=== PATIENT | female | born 1995 ===

== ENCOUNTER 2016-10-14 23:59 | Observation (INO) | payer OTHER ==
[2016-10-15] MEDS ORDERED: HYDROmorphone INJ* 1 MG/ML CARPUJECT SYRINGE IV PRN (01:45)
[2016-10-15] MEDS ORDERED: NS 0.9% 1000 ML* 1,000 ML IV SCH (01:45)
[2016-10-15] MEDS ORDERED: Ondansetron INJ* 2 MG/ML VIAL IV PRN (01:45)
[2016-10-15] MEDS ORDERED: Albuterol 2.5 MG/3 ML NEB.SOL* (0.083%) INH PRN (01:45)
[2016-10-15] MEDS ORDERED: Acetaminophen TAB* 325 MG PO PRN (01:45)
[2016-10-15] MEDS ORDERED: Ketorolac INJ* 15 MG/ML 1 ML VIAL IV PRN (01:45)
[2016-10-15] MEDS ORDERED: Nicotine Inhaler* 10 MG AMP INH PRN (01:45)
[2016-10-15] MEDS ORDERED: CMCS: Melatonin (NF) 3 MG TAB PO PRN (01:45)
[2016-10-15] MEDS ORDERED: Cyclobenzaprine TAB* 10 MG PO PRN (01:46)
--- NOTE | 2016-10-15 02:03 | HP ---
H&P (Free Text) History and Physical: PCP: Pavan Mcmahon DO Date/Time of Evaluation: 10/15/2016 0130 CC: LBP s/p slip & fall on ice Thursday HPI: Ms Arango is a pleasant 21YO healthy female who slipped on her porch at home Thursday hitting her low back on the edge of a step and experiencing immediate 10/10 pain associated with a burning/electric tingling from the site of impact down to the base of her spine which then skipped her gluteal area and resumed in the posterior thighs down the legs "to the toes". After lying on the porch to recover for several minutes she was able to get up and back inside. 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 She denies any loss of bowel/bladder or weakness of the lower extremities. Case was reportedly discussed with Chema Bhatt MD neurosurgery recommended transfer, medical admit, & will evaluate in the AM. 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 ; full code FamHx: Mother: alcoholism; Father: "crack head" ROS: as above, otherwise reviewed and all were negative Constitutional: NAD, normally developed, well-nourished white female vitals: Intake & Output 10/14/16 10/14/16 10/15/16 11:59 23:59 11:59 Weight 54.431 kg HEENM: atraumatic; sclera/conjunctiva: non-icteric/clear; hearing: intact; oropharynx: clear, mucosa moist Neck: soft tissue: non-tender; thyroid: normal Pulmonary: clear to auscultation bilaterally, good aeration, no accessory muscle use CV: RR/RR, normal S1S2, no carotid bruit, no jugular venous distention, 2+ B DP/ PT, no edema Abdominal: soft, non-distended, non-tender, no rebound/guarding/rigidity, normoactive bowel sounds, no hepatosplenomegaly or masses, no costovertebral angle tenderness Musculoskeletal: general: grossly intact; gait: stable Integumental: normal appearance and texture to exposed skin Neurological motor LLE: 4+/5 proximally & distally RLE: 4+/5 proximally & distally sensory crude touch: intact BLE temperature sense: intact BLE proprioception: intact BLE Psychiatric orientation: AA&O to PPS affect: calm mood: pleasant eye contact: good content: reliable responses: timely insight: fair to good Testing: baseline labs in AM CT L-spine WO: films not currently available for review Impression: 21F presenting with L1 vertebral body FX with retropulsion 2nd slip and fall in ice at home DIAGNOSIS & PLAN Primary L1 vertebral body FX w/ retropulsion : pain control : Chema Bhatt MD neurosurgery consulted by [facility] provider, will evaluate in AM : supportive care Secondary tobacco use disorder : cessation recommended, moderate motivation Admission Rational: observation for neurosurgical evaluation of acute L1 vertebral body FX w/ retropulsion DVTp: JERARDO Code Status: full
[2016-10-15] MEDS ORDERED: Omeprazole CAP* 20 MG PO SCH (06:00)
[2016-10-15 06:07] LABS: Hematocrit 38 % (35-47); Hemoglobin 12.6 g/dl (12.0-16.0); Mean Corpuscular HGB Conc 33 g/dl (31-36); Mean Corpuscular Hemoglobin 30 pg (27-31); Mean Corpuscular Volume 91 fL (80-97); Mean Platelet Volume 8 um3 (7.4-10.4); Red Blood Count 4.19 10^6/ul (4.0-5.4); Red Cell Distribution Width 12 % (10.5-15); White Blood Count 6.1 10^3/ul (3.5-10.8)
[2016-10-15 06:21] LABS: BUN/Creatinine Ratio 12.5 (8-20); Calcium 8.6 mg/dL (8.6-10.3); EGFR African American 152.1 (>60); EGFR Non-African American 118.3 (>60); Potassium 3.6 mmol/L (3.5-5.0)
[2016-10-15 07:55] VITALS: BP 118/67
--- NOTE | 2016-10-15 08:03 | CONSULT ---
Consult Consult: Neurosurgery Consult Date of consult: 10/15/16 Reason for consult: Lumbar compression fracture HPI: This is a 21 year old female who reported to [facility] on 10/14/16 after falling on the deck at home, landing on her back on 10/13/16. [facility] reported a L1 compression fracture and transferred her to [facility] for further evaluation and treatment. Initially, she experienced intermittent tingling in the lower extremities which has since resolved. She denies current numbness, tingling, weakness and pain in the bilateral lower extremities. She is ambulating independently. Pain is well controlled with oral pain medications. Past Medical History: No medical conditions. Allergies: No known allergies Medications: No home medications ROS: Complete ROS performed. All pertinent findings in HPI, all others negative. Physical Exam: Vital Signs: Temp Pulse Resp BP Pulse Ox 98.1 F 82 16 118/67 100 10/15/16 07:20 10/15/16 07:20 10/15/16 08:00 10/15/16 07:20 10/15/16 07:20 General: Alert and oriented. No distress. Laying comfortably in bed. HEENT: Head is normocephalic and atraumatic. EOMI, PERRLA, sclerae anicteric. Gross hearing intact. Moist mucus membranes. CV: Radial pulses 2+ and equal. Pedal pulses palpable. Lungs: Breathing is nonlabored. Abdomen: Flat, nontender and nondistended. Neuro: Strength 5/5 in bilateral lower extremities throughout. Sensation intact throughout. Patellar and achilles reflexes intact bilaterally. Imagin. CT of the lumbar spine at [facility] shows mild L1 compression fracture. Assessment: Stable with no indication for surgical intervention. Plan: 1. Discharge home today. 2. Discharge instructions discussed with the patient.
[2016-10-15] MEDS ORDERED: HYDROcodone/ACETAMIN 5-325 MG* 1 TAB PO PRN (09:12)
[2016-10-15] MEDS ORDERED: HYDROcodone/ACETAMIN 5-325 MG* 1 TAB ONE (09:17)
[2016-10-15 09:32] LABS: Urine Bilirubin Negative (Negative); Urine Glucose Negative (Negative); Urine Nitrite Negative (Negative)
--- NOTE | 2016-11-15 00:18 | DS ---
DISCHARGE SUMMARY: DATE OF ADMISSION: 10/15/16 DATE OF DISCHARGE: 10/15/16 DISCHARGE DIAGNOSIS: Compression fracture of L1 on the right. HOSPITAL COURSE: This 21-year-old female was seen at the hospital after admission on October 15 with low back pain. She initially presented to [facility] on 10/14/16 after falling on her deck, landing on her back on 10/13/16. She presented with back pain at that time. A CT scan o btained at [facility] revealed L1 compression fracture. She was transferred to [facility] and treatment. Pain was well controlled with oral pain medications at the time of con sult on 10/15/16. She was ambulating independently without difficulty. She was eating and drinking without difficulty and she was voiding without difficulty. There is no indication for surgical int ervention. Treatment with pain medications and rest were discussed with the patient. She was disch arged home on 10/15/16 with activity level recommendation. She can follow up in office as ginna medina. Her discharge medications include Fletcher 5/325 mg 2 tabs by mouth every 4 hours as needed for pain. ANTONETTE STEPHEN [id number]/[facility] #: [id number]
== END 2016-10-15 10:10 | disposition home or self-care (01) ==
LOC: SSU 10-15 01:17 → INTOOBSV 10-15 01:17
PROVIDERS: ADMIT Neurological Surgery; ATTEND Neurological Surgery
DX: S32.019A Unspecified fracture of first lumbar vertebra, initial encounter for closed fracture (principal); W00.0XXA Fall on same level due to ice and snow, initial encounter; Y92.009 Unspecified place in unspecified non-institutional (private) residence as the place of occurrence of the external cause; F17.210 Nicotine dependence, cigarettes, uncomplicated
CPT/HCPCS: 36415; 80048; 81003; 85027; 85610; 96374; A9270-GY; G0378; G8978-GP-CH; G8979-GP-CH; G8980-GP-CH; J1885

== ENCOUNTER 2018-04-16 19:57 | Emergency (ER) | payer OTHER ==
--- NOTE | 2018-04-16 23:41 | RAD ---
EXAM: CT Head Without Intravenous Contrast CLINICAL HISTORY: 22 years old, female; Injury or trauma; Fall; Initial encounter; Abrasion; Forehead TECHNIQUE: Axial computed tomography images of the head/brain without intravenous contrast. COMPARISON: BRAIN W/O CT BRAIN W/O 2011-11-20 17:48 FINDINGS: Brain: No acute ischemic changes, extra axial fluid collections, intraparenchymal hemorrhage, or midline shift. Ventricles: Normal. No ventriculomegaly. Symmetrical in position. Bones/joints: No acute fracture. No suspicious osseous lesions. Soft tissues: Normal. Sinuses: Normal as visualized. Mastoid air cells: Normal as visualized. No mastoid effusion. IMPRESSION: No traumatic intracranial abnormalities. R0
[2018-04-17] MEDS ORDERED: Acetaminophen TAB* 325 MG PO ONE (00:04)
[2018-04-17] MEDS ORDERED: Ibuprofen TAB* 600 MG PO ONE (00:04)
--- NOTE | 2018-04-17 00:04 | ED ---
Syncope/Near Syncope - HPI Summary HPI Summary: This patient is a 22 year old F presenting to [facility] accompanied by grandmother and boyfriend with a chief complaint of syncope that occurred QUILL STRIPPER. Patient reports hitting her head when she fell. The patient rates the pain 6/10 in severity. Symptoms aggravated by nothing. Symptoms alleviated by nothing. Patient reports dizziness, headache, neck pain, and abrasion on forehead. Patient denies sore throat, ear ache, fever, blurred vision, CP, SOB, abd pain, and dysuria. Patient reports she has a history of dizziness and syncope. - History Of Current Complaint Chief Complaint: EDSyncope Hx Obtained From: Patient Onset/Duration: Sudden Onset, Lasting Minutes, Resolved Timing: Intermittent Episode Lasting - minutes Context: Witnessed, Loss Of Consciousness Associated Head Trauma: Yes Aggravating Factor(s): Nothing Alleviating Factor(s): Nothing Associated Signs And Symptoms: Other - Positive dizziness, headache, neck pain, and abrasion on forehead. Negative sore throat, ear ache, fever, blurred vision , CP, SOB, abd pain, and dysuria. - Allergies/Home Medications Allergies/Adverse Reactions: Allergies Allergy/AdvReac Type Severity Reaction Status Date / Time No Known Allergies Allergy Verified 08/03/15 14:27 PMH/Surg Hx/FS Hx/Imm Hx Previously Healthy: No Endocrine/Hematology History: Denies: Hx Anticoagulant Therapy, Hx Blood Disorders, Hx Blood Transfusions, Hx Bone Marrow Disease, Hx Diabetes, Hx Systemic Lupus Erythematosus, Hx Sickle Cell Disease, Hx Thyroid Disease, Hx Anemia, Hx Unexplained Bleeding, Other Endocrine/Hematological Disorders Cardiovascular History: Denies: Hx Hypertension, Hx Pacemaker/ICD History: Denies: Hx Renal Disease Musculoskeletal History: Denies: Hx Arthritis Sensory History: Reports: Hx Contacts or Glasses Denies: Hx Hearing Aid Opthamlomology History: Reports: Hx Contacts or Glasses Neurological History: Reports: Hx Spinal Cord Injury - this admission Denies: Hx Dementia, Hx Developmental Delay, Hx Headaches, Hx Migraine, Hx Nerve Disease, Hx Seizures, Hx Transient Ischemic Attacks (TIA) Psychiatric History: Reports: Hx Depression Denies: Hx Panic Disorder - Cancer History Hx Chemotherapy: No Hx Radiation Therapy: No Hx Palliative Cancer Treatment: No - Surgical History Hx Anesthesia Reactions: No Infectious Disease History: No Infectious Disease History: Denies: Hx Clostridium Difficile, Hx Hepatitis, Hx Human Immunodeficiency Virus (HIV), Hx of Known/Suspected MRSA, Hx Shingles, Hx Tuberculosis, History Other Infectious Disease, Traveled Outside the [place] in Last 30 Days - Family History Known Family History: Positive: Cardiac Disease, Diabetes - Social History Occupation: Employed Full-time Lives: Alone Alcohol Use: Occasionally Hx Substance Use: Yes Substance Use Type: Reports: Marijuana Substance Use Comment - Amount & Last Used: Daily Hx Tobacco Use: Yes Smoking Status (MU): Current Every Day Smoker Review of Systems Negative: Fever Negative: Blurred Vision Negative: Sore Throat, Ear Ache Negative: Chest Pain Negative: Shortness Of Breath Negative: Abdominal Pain Negative: dysuria Positive: Other - Positive neck pain Positive: Other - Positive abrasion to forehead Neurological: Other - Positive dizziness Positive: Headache Negative: Depressed All Other Systems Reviewed And Are Negative: Yes Physical Exam - Summary Physical Exam Summary: Appearance: Alert, conversive, nontoxic appearing Skin: Warm, dry, no mottling, no rashes, no contusions. Abrasion to right knee and left knee. Abrasion to left forehead. Abrasion to dorsum of left dorsal thumb and right ring finger. HEENT: EOMI, PERRL, moist mucous membranes Neck: No masses on the neck, supple Respiratory: Clear to auscultation, breath sounds present, no rales, no rhonchi , no wheezes Cardiovascular: RRR, pulses are symmetrical in both lower and upper extremities Abdomen: Soft, non-tender Bowel Sounds: Present Musculoskeletal: No CVA tenderness, no obvious deformity, moving all extremities in a grossly normal manner Neurological: A&Ox3, CN II-XII Intact, moving all extremities symmetrically Psychiatric: Normal affect and mood Triage Information Reviewed: Yes Vital Signs On Initial Exam: Initial Vitals Temp Pulse Resp BP Pulse Ox 98.2 F 73 18 123/78 98 04/16/18 20:10 04/16/18 20:10 04/16/18 20:10 04/16/18 20:10 04/16/18 20:10 Vital Signs Reviewed: Yes Diagnostics - Vital Signs Vital Signs Temp Pulse Resp BP Pulse Ox 04/16/18 20:10 98.2 F 73 18 123/78 98 - Laboratory Lab Statement: Any lab studies that have been ordered have been reviewed, and results considered in the medical decision making process. - CT Brain CT CT Interpretation Completed By: Radiologist - Brain CT reveals, per radiologist , no traumatic intracranial abnormalities. ED physician has reviewed this radiology report. - EKG 2330 Cardiac Rate: Bradycardia EKG Rhythm: Sinus Rhythm - [address] Segment: Normal Ectopy: None Course/Dx Course Of Treatment: This patient is a 22 year old F presenting to [facility] accompanied by grandmother and boyfriend with a chief complaint of syncope that occurred QUILL STRIPPER. Patient reports hitting her head when she fell. Physical Exam Findings: Abrasion to right knee and left knee. Abrasion to left forehead. Abrasion to dorsum of left dorsal thumb and right ring finger. An EKG reveals sinus bradycardia at [address] reveals, per radiologist, no traumatic intracranial abnormalities. In the ED course the patient was given acetaminophen and Motrin. Patient will be discharged with follow up from PCP. The patient is agreeable with this plan. - Diagnoses Provider Diagnoses: Concussion, Syncope Discharge - Sign-Out/Discharge Documenting (check all that apply): Patient Departure - Discharge - Discharge Plan Condition: Stable Disposition: HOME Patient Education Materials: Syncope (ED), Concussion (ED) Referrals: No Primary Care Phys,NOPCP [Primary Care Provider] - Additional Instructions: Please follow up with your primary care physician. If you have persistent headaches, nausea/vomiting, or difficulty concentrating or performing tasks, this may be due to a concussion. If this is the case, please discuss with your doctor the need for referral to a concussion clinic. take tylenol and motrin for pain.
[2018-04-17 00:14] VITALS: BP 113/62
== END 2018-04-17 00:16 | disposition home or self-care (01) ==
LOC: ED 19:57
DX: R55 Syncope and collapse (principal); S06.0X9A Concussion with loss of consciousness of unspecified duration, initial encounter; S80.212A Abrasion, left knee, initial encounter; S80.211A Abrasion, right knee, initial encounter; S00.81XA Abrasion of other part of head, initial encounter; S60.312A Abrasion of left thumb, initial encounter; S60.414A Abrasion of right ring finger, initial encounter; W19.XXXA Unspecified fall, initial encounter; Y93.9 Activity, unspecified; Y92.9 Unspecified place or not applicable; R00.1 Bradycardia, unspecified
CPT/HCPCS: 70450; 93005; 99283

== ENCOUNTER 2018-11-09 02:54 | Emergency (ER) | payer OTHER ==
[2018-11-09] MEDS ORDERED: NS 0.9% 1000 ML** 1,000 ML IV ONE (03:42)
[2018-11-09] MEDS ORDERED: Ondansetron INJ* 2 MG/ML VIAL IV ONE (03:42)
[2018-11-09 04:19] LABS: ABS Basophils 0 10^3/ul (0-0.2); ABS Eosinophils 0.1 10^3/ul (0-0.6); ABS Lymphocytes 0.5 10^3/ul (1.0-4.8); ABS Monocytes 0.4 10^3/ul (0-0.8); ABS Nucleated RBC 0 10^3/ul; Hematocrit 46 % (35-47); Hemoglobin 15.2 g/dl (12.0-16.0); Lymphocyte % 4.2 %; Mean Corpuscular HGB Conc 33 g/dl (31-36); Mean Corpuscular Hemoglobin 31 pg (27-31); Mean Corpuscular Volume 92 fL (80-97); Nucleated Red Blood Cells % 0; Platelet Count 222 10^3/ul (150-450); Red Blood Count 4.97 10^6/ul (4.00-5.40); Red Cell Distribution Width 13 % (10.5-15); White Blood Count 10.9 10^3/ul (3.5-10.8)
[2018-11-09 04:36] LABS: ALT 9 U/L (7-52); AST 16 U/L (13-39); Albumin 4.4 g/dL (3.2-5.2); Albumin/Globulin Ratio 1.8 (1-3); Alkaline Phosphatase 66 U/L (34-104); Anion Gap 7 mmol/L (2-11); BUN/Creatinine Ratio 21.1 (8-20); Blood Urea Nitrogen 15 mg/dL (6-24); CO2 Carbon Dioxide 25 mmol/L (22-32); Calcium 8.8 mg/dL (8.6-10.3); Chloride 107 mmol/L (101-111); EGFR African American 124.6 (>60); EGFR Non-African American 102.9 (>60); Globulin 2.5 g/dL (2-4); Glucose 110 mg/dL (70-100); Potassium 4.1 mmol/L (3.5-5.0); Sodium 139 mmol/L (135-145); Total Protein 6.9 g/dL (6.4-8.9)
[2018-11-09 04:43] LABS: HCG Pregnancy < 0.60 mIU/mL
--- NOTE | 2018-11-09 06:34 | ED ---
Abdominal Pain/Female - HPI Summary HPI Summary: The patient is a 23 y/o F presenting to [facility] with a chief complaint of sudden onset nausea and vomiting starting at 2230 tonight. At time of onset, she wasn' t doing anything in particular, and felt normal throughout the day. She additionally c/o epigastric pain and denies abnormal BM. The pain is currently rated 8/10 in severity. She has hx of syncope but does not take medication. No abd surgery. LNMP: last week. - History of Current Complaint Chief Complaint: EDNauseaVomitDiarrh Stated Complaint: PUKING UP STOMACH ACID,DIZZY SPELLS -PER PT Time Seen by Provider: 11/09/18 03:39 Hx Obtained From: Patient Onset/Duration: Sudden Onset, Lasting Hours, Still Present Timing: Hours Severity Initially: Moderate Severity Currently: Moderate Pain Intensity: 8 Pain Scale Used: 0-10 Numeric Location: Epigastric Radiates: No Character: Sharp Aggravating Factor(s): Nothing Alleviating Factor(s): Nothing Associated Signs and Symptoms: Positive: Nausea, Vomiting, Other: - NEGATIVE: changes in BM Allergies/Adverse Reactions: Allergies Allergy/AdvReac Type Severity Reaction Status Date / Time No Known Allergies Allergy Verified 08/03/15 14:27 PMH/Surg Hx/FS Hx/Imm Hx Endocrine/Hematology History: Denies: Hx Anticoagulant Therapy, Hx Blood Disorders, Hx Blood Transfusions, Hx Bone Marrow Disease, Hx Diabetes, Hx Systemic Lupus Erythematosus, Hx Sickle Cell Disease, Hx Thyroid Disease, Hx Anemia, Hx Unexplained Bleeding, Other Endocrine/Hematological Disorders Cardiovascular History: Denies: Hx Hypertension, Hx Pacemaker/ICD History: Denies: Hx Renal Disease Musculoskeletal History: Denies: Hx Arthritis Sensory History: Reports: Hx Contacts or Glasses Denies: Hx Hearing Aid Opthamlomology History: Reports: Hx Contacts or Glasses Neurological History: Reports: Hx Spinal Cord Injury - this admission Denies: Hx Dementia, Hx Developmental Delay, Hx Headaches, Hx Migraine, Hx Nerve Disease, Hx Seizures, Hx Transient Ischemic Attacks (TIA) Psychiatric History: Reports: Hx Depression Denies: Hx Panic Disorder - Cancer History Hx Chemotherapy: No Hx Radiation Therapy: No Hx Palliative Cancer Treatment: No - Surgical History Surgery Procedure, Year, and Place: none Hx Anesthesia Reactions: No Infectious Disease History: No Infectious Disease History: Denies: Hx Clostridium Difficile, Hx Hepatitis, Hx Human Immunodeficiency Virus (HIV), Hx of Known/Suspected MRSA, Hx Shingles, Hx Tuberculosis, History Other Infectious Disease, Traveled Outside the [place] in Last 30 Days - Family History Known Family History: Positive: Cardiac Disease, Diabetes - Social History Alcohol Use: Occasionally Hx Substance Use: Yes Substance Use Type: Reports: None Substance Use Comment - Amount & Last Used: Daily Hx Tobacco Use: Yes Smoking Status (MU): Current Every Day Smoker Review of Systems Negative: Fever Positive: Abdominal Pain - epigastric, Vomiting, Nausea, Other - NEGATIVE: changes in BM All Other Systems Reviewed And Are Negative: Yes Physical Exam - Summary Physical Exam Summary: Appearance: Well-appearing, Well-nourished, lying in bed comfortably Skin: Warm, dry, no obvious rash Eyes: sclera anicteric, no conjunctival pallor ENT: mucous membranes moist, pharynx appears normal Neck: Supple, nontender Respiratory: Clear to auscultation, no signs of respiratory distress Cardiovascular: Tachycardia. No murmurs. Normal distal pulses in tibial and radial bilaterally. Abdomen: Soft, nontender, normal active bowel sounds present Musculoskeletal: Normal, Strength/ROM Intact Neurological: A&Ox3, awake and alert, mentation is normal, speech is fluent and appropriate Psychiatric: affect is normal, does not appear anxious or depressed Triage Information Reviewed: Yes Vital Signs On Initial Exam: Initial Vitals Temp Pulse Resp BP Pulse Ox 97.7 F 110 22 108/76 99 11/09/18 02:58 11/09/18 02:58 11/09/18 02:58 11/09/18 02:58 11/09/18 02:58 Vital Signs Reviewed: Yes Diagnostics - Vital Signs Vital Signs Temp Pulse Resp BP Pulse Ox 11/09/18 05:00 92 16 99 11/09/18 04:00 89 16 98 11/09/18 03:48 102 97 11/09/18 03:46 106 117/79 97 11/09/18 02:58 97.7 F 110 22 108/76 99 - Laboratory Lab Results: Lab Results 11/09/18 11/09/18 Range/Units 04:09 04:09 WBC 10.9 H (3.5-10.8) 10^3/ul RBC 4.97 (4.00-5.40) 10^6/ul Hgb 15.2 (12.0-16.0) g/dl Hct 46 (35-47) % MCV 92 (80-97) fL MCH 31 (27-31) pg MCHC 33 (31-36) g/dl RDW 13 (10.5-15) % Plt Count 222 (150-450) 10^3/ul MPV 8.0 (7.4-10.4) fL Neut % (Auto) 91.4 % Lymph % (Auto) 4.2 % [place] % (Auto) 3.3 % Eos % (Auto) 1.0 % Baso % (Auto) 0.1 % Absolute Neuts (auto) 10.0 H (1.5-7.7) 10^3/ul Absolute Lymphs (auto) 0.5 L (1.0-4.8) 10^3/ul Absolute Monos (auto) 0.4 (0-0.8) 10^3/ul Absolute Eos (auto) 0.1 (0-0.6) 10^3/ul Absolute Basos (auto) 0 (0-0.2) 10^3/ul Absolute Nucleated RBC 0 10^3/ul Nucleated RBC % 0 Sodium 139 (135-145) mmol/L Potassium 4.1 (3.5-5.0) mmol/L Chloride 107 (101-111) mmol/L Carbon Dioxide 25 (22-32) mmol/L Anion Gap 7 (2-11) mmol/L BUN 15 (6-24) mg/dL Creatinine 0.71 (0.51-0.95) mg/dL Est GFR ( Amer) 124.6 (>60) Est GFR (Non-Af Amer) 102.9 (>60) BUN/Creatinine Ratio 21.1 H (8-20) Glucose 110 H (70-100) mg/dL Calcium 8.8 (8.6-10.3) mg/dL Total Bilirubin 0.60 (0.2-1.0) mg/dL AST 16 (13-39) U/L ALT 9 (7-52) U/L Alkaline Phosphatase 66 (34-104) U/L Total Protein 6.9 (6.4-8.9) g/dL Albumin 4.4 (3.2-5.2) g/dL Globulin 2.5 (2-4) g/dL Albumin/Globulin Ratio 1.8 (1-3) Lipase 11 (11.0-82.0) U/L Beta HCG, Quant < 0.60 mIU/mL Result Diagrams: 11/09/18 04:09 11/09/18 04:09 Lab Statement: Any lab studies that have been ordered have been reviewed, and results considered in the medical decision making process. Abdominal Pain Fem Course/Dx - Course Course Of Treatment: The patient is a 23 y/o F with a chief complaint of sudden onset nausea and vomiting starting at 2230 tonight. At time of onset, she wasn' t doing anything in particular, and felt normal throughout the day. She additionally c/o epigastric pain and denies abnormal BM. Hx of syncope, no abd surgery. Upon physical exam, the patient exhibits tachycardia. In the ED course , the patient was administered Ns and Zofran. Blood work did not show any concerning abnormalities. She is diagnosed with nausea and vomiting. She will be discharge home with prescription for Zofran. She agrees with this plan and understands the need for return to the ED if necessary. - Diagnoses Differential Diagnosis: Positive: Appendicitis, Gall Bladder Disease, Irritable Bowel Syndrome Provider Diagnoses: Nausea and vomiting Discharge - Sign-Out/Discharge Documenting (check all that apply): Patient Departure - Patient will be discharged home. Patient Received Moderate/Deep Sedation with Procedure: No - Discharge Plan Condition: Improved Disposition: HOME Prescriptions: Ondansetron ODT TAB* [Zofran 4 MG Odt TAB*] 8 mg PO Q6H PRN #[id number] tab.odt PRN Reason: Nausea Patient Education Materials: Acute Nausea and Vomiting (ED) Referrals: [facility] [Outside] - 2 Days (if not better) Additional Instructions: Follow up with [facility]. Return to the emergency department for any new or worsening symptoms. - Billing Disposition and Condition Condition: IMPROVED Disposition: Home - Attestation Statements Document Initiated by Margarita: Yes Documenting Scribe: Alice Patel Provider For Whom Margarita is Documenting (Include Credential): MD Kelsea Cooperibrachel Attestation: Alice Reagan scribed for Dr. Clarke Jones MD on 11/10/18 at 0435. Scribe Documentation Reviewed: Yes Provider Attestation: The documentation as recorded by the Alice slaughter accurately reflects the service I personally performed and the decisions made by me, Dr. Clarke Jones MD Status of Scribe Document: Viewed
[2018-11-09 06:37] VITALS: BP 118/78
== END 2018-11-09 05:15 | disposition home or self-care (01) ==
LOC: ED 02:54
DX: R11.2 Nausea with vomiting, unspecified (principal); R10.13 Epigastric pain; Z82.49 Family history of ischemic heart disease and other diseases of the circulatory system; Z83.3 Family history of diabetes mellitus; F17.200 Nicotine dependence, unspecified, uncomplicated
CPT/HCPCS: 36415; 80053; 83690; 84702; 85025; 96374; 99283; J2405